=== PATIENT | female | born 1950 | race Caucasian/White ===

== ENCOUNTER 2022-05-29 15:58 | Inpatient (IN) | payer MEDICARE, OTHER ==
[~2022-05-29] VITALS: Ht 152.4 cm; Wt 81.6 kg
--- NOTE | 2022-05-29 16:01 | NUR ---
BIBA BLS TO ER BED 5
[2022-05-29 16:09] VITALS: BP 110/70
--- NOTE | 2022-05-29 16:28 | NUR ---
71 y/o female biba for new onset of nausea and vomiting after taking her norco this morning. pt was given new rx of norco for pain management of her right knee replacement sx done 2 days ago. aox4. skin is pink, warm, and non-intact; surgical incision on right knee reinforced with dressing. denies fever, chills, or sob. safety precautions in place. safety precautions in place. bed in low position. Made aware to ED MD of patient's status. pmh: right knee replacement, breast ca nka med: norco, donepezil, montelukast, melatonin
--- NOTE | 2022-05-29 16:46 | NUR ---
XR TECH AT BEDSIDE
[2022-05-29 16:47] LABS: BASOPHILS % (AUTO) 0.5 % (0.0-2.0); EOSINOPHILS % (AUTO) 0.1 % (0.0-4.0); HEMATOCRIT 31.1 % (36-48); HEMOGLOBIN 10.3 g/dL (12.0-16.0); LYMPHOCYTES # (AUTO) 1.4 K/uL (2.5-16.5); LYMPHOCYTES % (AUTO) 14.8 % (20.5-51.1); MEAN CORPUSCULAR HEMOGLOBIN 30 pg (27-31); MEAN CORPUSCULAR HGB CONC 33 g/dL (33-37); MEAN CORPUSCULAR VOLUME 89.2 fL (80-94); MONOCYTES # (AUTO) 0.9 K/uL (0.8-1.0); MONOCYTES % (AUTO) 9.4 % (1.7-9.3); NEUTROPHILS # (AUTO) 7.2 K/uL (1.8-7.7); NEUTROPHILS % (AUTO) 75.2 % (42.2-75.2); PLATELET COUNT (AUTO) 159 K/uL (140-450); RED BLOOD CELL COUNT(AUTO) 3.49 MIL/uL (4.20-5.40); RED CELL DISTRIBUTION WIDTH 15.3 % (11.6-13.7); WHITE BLOOD COUNT (AUTO) 9.6 K/uL (4.8-10.8)
[2022-05-29 17:16] LABS: ALBUMIN 2.7 g/dL (3.4-5.0); ANION GAP 12.2 (8-16); ASPARTATE AMINOTRANSFERASE 27 U/L (15-37); CHLORIDE 103 mmol/L (98-107); CREATININE 0.5 mg/dL (0.6-1.3); FREE T4 (FREE THYROXINE) 0.91 ng/dL (0.76-1.46); GFR ARICAN-AMERICAN 157 mL/min (>90); GLUCOSE 126 mg/dL (74-106); POTASSIUM 4.2 mmol/L (3.5-5.1); SODIUM SERUM 136 mmol/L (136-145); THYROID STIMULATING HORMONE 0.77 uIU/mL (0.34-3.74); TOTAL BILIRUBIN 0.8 mg/dL (0.0-1.0); UREA NITROGEN, BLOOD 9 mg/dL (7-18)
[2022-05-29 17:17] LABS: ACETAMINOPHEN < 0.5 ug/ml (10-30); SALICYLATE < 2.8 mg/dL (2.8-20.0)
--- NOTE | 2022-05-29 17:38 | NUR ---
OBTAIN UA SPECIMENS
[2022-05-29 18:05] LABS: APPEARANCE,URINE CLEAR (CLEAR); BILIRUBIN,URINE 1+ (NEGATIVE); BLOOD, URINE NEGATIVE (NEGATIVE); COLOR,URINE YELLOW (YELLOW); LEUKOCYTE ESTERASE ,URINE NEGATIVE (NEGATIVE); NITRITE, URINE NEGATIVE (NEGATIVE); UGLUCOSE NEGATIVE (NEGATIVE)
[2022-05-29 18:23] LABS: BARBITURATE, URINE NEGATIVE ng/ml (NEG <=200); BENZODIAZEPINE, URINE NEGATIVE ng/mL (NEG <=200); CANNABINOID, URINE POSITIVE ng/mL (NEG <=50); COCAINE, URINE NEGATIVE ng/mL (NEG <=300); OPIATE, URINE POSITIVE ng/mL (NEG <=2000); PHENCYCLIDINE SCREEN,URINE NEGATIVE ng/mL (NEG <=25)
[2022-05-29] MEDS ORDERED: NACL 0.9% 1,000 ML IV ONE ×2 (19:00→20:20)
--- NOTE | 2022-05-29 19:26 | NUR ---
ENDORSED TO SUPERVISOR PAYROLL NURSE FOR CONTINUITY OF CARE. PT IS STABLE.
--- NOTE | 2022-05-29 20:18 | NUR ---
Dr. Smith notified, patient had low BP -map < 60
--- NOTE | 2022-05-29 20:22 | NUR ---
COVID-19 swabs collected and sent to lab.
--- NOTE | 2022-05-29 20:29 | NUR ---
Blood for labwork drawn from right arm per commutator inspector. Patient tolerated well.
[2022-05-29] MEDS ORDERED: ATOR20TA40 PO (20:40)
[2022-05-29] MEDS ORDERED: MONT10TA35 PO (20:40)
[2022-05-29] MEDS ORDERED: DONE10TA10 PO (20:40)
--- NOTE | 2022-05-29 20:40 | NUR ---
Med-reconcile reviewed.
[2022-05-29] MEDS ORDERED: cefTRIAXone 1,000 MG VIAL ONE (20:44)
[2022-05-29] MEDS ORDERED: ONDANSETRON 4 MG/2 ML VIAL IM/IVP PRN (21:00)
[2022-05-29] MEDS ORDERED: HYDROcodone/APAP 7.5/325 MG 1 TAB PO PRN (21:00)
[2022-05-29] MEDS ORDERED: POTASSIUM CHLORIDE 10 MEQ TABER PO PRN (21:00)
[2022-05-29] MEDS ORDERED: ZOLPIDEM 5 MG TAB PO PRN (21:00)
[2022-05-29] MEDS ORDERED: guaiFENesin DM 200/20 MG-10 ML 10 ML UDC PO PRN (21:00)
[2022-05-29] MEDS ORDERED: ACETAMINOPHEN 325 MG TAB PO PRN (21:00)
[2022-05-29] MEDS ORDERED: DOCUSATE SODIUM 100 MG GELCAP PO PRN (21:00)
--- NOTE | 2022-05-29 21:51 | NUR ---
Patient appears to be resting comfortably in bed. Vital Signs within normal limits. Respirations even and unlabored.
[2022-05-29 22:27] LABS: AMYLASE 73 U/L (25-115); LIPASE 86 U/L (73-393); MAGNESIUM 2.2 mg/dL (1.8-2.4); PHOSPHORUS 2.8 mg/dL (2.5-4.9)
--- NOTE | 2022-05-29 22:51 | NUR ---
Patient 's family at bedside.
[2022-05-29] MEDS: NACL 0.9% 1,000 ML IV SCH (23:22)
--- NOTE | 2022-05-29 23:34 | NUR ---
Provided bedpan as request.
--- NOTE | 2022-05-30 00:48 | NUR ---
Change new grown and new bed sheet.
--- NOTE | 2022-05-30 01:28 | NUR ---
Re-position patient and change a new diaper
--- NOTE | 2022-05-30 02:41 | NUR ---
Re-position patient as request.
--- NOTE | 2022-05-30 04:41 | NUR ---
Patient appears to be resting comfortably in bed. Vital Signs within normal limits. Respirations even and unlabored.
--- NOTE | 2022-05-30 05:31 | NUR ---
Changed a new diaper.
[2022-05-30 05:41] LABS: BASOPHILS % (AUTO) 0.4 % (0.0-2.0); EOSINOPHILS # (AUTO) 0.1 K/uL (0-0.4); EOSINOPHILS % (AUTO) 0.6 % (0.0-4.0); HEMATOCRIT 30.8 % (36-48); HEMOGLOBIN 10.1 g/dL (12.0-16.0); LYMPHOCYTES # (AUTO) 1.5 K/uL (2.5-16.5); MEAN CORPUSCULAR HEMOGLOBIN 30 pg (27-31); MEAN CORPUSCULAR HGB CONC 33 g/dL (33-37); MEAN CORPUSCULAR VOLUME 90.5 fL (80-94); MONOCYTES # (AUTO) 0.8 K/uL (0.8-1.0); NEUTROPHILS # (AUTO) 6.8 K/uL (1.8-7.7); PLATELET COUNT (AUTO) 144 K/uL (140-450); RED BLOOD CELL COUNT(AUTO) 3.41 MIL/uL (4.20-5.40); RED CELL DISTRIBUTION WIDTH 15.5 % (11.6-13.7); WHITE BLOOD COUNT (AUTO) 9.2 K/uL (4.8-10.8)
[2022-05-30 05:52] LABS: CARBON DIOXIDE 25.8 mmol/L (21-32); CREATININE 0.4 mg/dL (0.6-1.3); POTASSIUM 3.8 mmol/L (3.5-5.1)
--- NOTE | 2022-05-30 06:07 | NUR ---
EKG PERFORMED AND ABNORM RESULTS REPORTED TO RN COPY PLACED IN CHART ALONG W/ RHYTHM STRIP
--- NOTE | 2022-05-30 07:30 | NUR ---
REPORT RECEIVED FROM MARCH RN . TRANSFER OF CARE AT THIS TIME
--- NOTE | 2022-05-30 07:31 | NUR ---
Chart checked and completed. The patient's care was reviewed and supervised by Nicolasa Romero RN.
--- NOTE | 2022-05-30 07:52 | NUR ---
Patient will be admitted to care of MD HARTMAN. Admited to TELE. Will go to room 122B. Belongings list completed. Report to PATRICIA CARDONA.
--- NOTE | 2022-05-30 07:55 | NUR ---
RECEIVED PT FROM ED VIA [employer]. BEDSIDE REPORT GIVEN BY HEIDY NAILS. PT IS ALERT, ABLE TO MAKE NEEDS KNOWN IN BENGALI AND HEBREW. BREATHING SYMMETRICAL ON ROOM AIR. DENIES NAUSEA AT THIS TIME. PT HAS DRY DRESSING ON RIGHT KNEE, PT HAD RIGHT KNEE REPLACEMENT ON T 05/27/22 AT [facility]. WITH LEFT HAND 22G WITH NS AT 100CC/HR. CALL LIGHT WITHIN REACH. ALL SAFETY MEASURES IN PLACE.
[2022-05-30 08:00] VITALS: BP 155/68
--- NOTE | 2022-05-30 08:05 | NUR ---
DR HARTMAN AT BEDSIDE, SEEN AND EXAMINED PT
[2022-05-30] MEDS: NACL 0.9% 1,000 ML IV SCH (08:10)
[2022-05-30] MEDS ORDERED: PANTOPRAZOLE 40 MG TABEC PO SCH (09:00)
--- NOTE | 2022-05-30 09:04 | NUR ---
PATIENT HAS BEEN SCREENED AND CATEGORIZED LOW NUTRITION RISK. PATIENT WILL BE SEEN WITHIN 7 DAYS OF ADMISSION. 06/05/[address]
[2022-05-30] MEDS ORDERED: NAPR-54 PO (10:09)
[2022-05-30] MEDS ORDERED: MORPHINE SULFATE 2 MG/ML SYR IVP PRN (10:10)
--- NOTE | 2022-05-30 10:15 | NUR ---
MD MADE AWARE PT C/O PAIN ON RIGHT KNEE AND NO CURRENT PRN MED ORDER IN PLACE.
[2022-05-30 11:21] VITALS: BP 155/68
--- NOTE | 2022-05-30 11:31 | NUR ---
PT FOR DISCHARGE AND AWARE. PT'S WILL PICK HER UP
--- NOTE | 2022-05-30 12:40 | NUR ---
PT DISCHARGED TO HOME WITH BELONGINGS AND PAPERWORKS, PICKED UP BY VIA PRIVATE VEHICLE. IV LINE REMOVED WITH CATHETER INTACT, NO BLEEDING NOTED. DISCHARGE INSTRUCTIONS PROVIDED AND VERBALIZED UNDERSTANDING
--- NOTE | 2022-05-30 13:13 | NUR ---
DC PLANNING: THE PATIENT WAS BIBA WITH C/O NAUSEA, S/P RIGHT TKR, ONSET OF N/V AFTER TAKING NORCO. H/O BREAST CA, HEAD CT NEGATIVE, FINDINGS OF NARCOTIC AND THC OVERDOSE. TOX SCREEN POSITIVE FOR OPIATES AND CANNABINOIDS, STARTED ON IVF'S, ROCEPHIN IV AND PROTONIX. THE PATIENT LIVES WITH HER SPOUSE AND MOTHER AND WILL NEED HOME HEALTH P.T.. ORDER FOR HOME HEALTH FAXED TO [place] TO [facility], PATIENT TO DC HOME WITH FAMILY WHEN CLINICALLY STABLE. CM WILL FOLLOW.
== END 2022-05-30 12:35 | disposition home or self-care (01) | DRG 917 ==
LOC: MED 15:58 → MTU 21:03
PROVIDERS: ADMIT Student in an Organized Health Care Education/Training Program; ATTEND Student in an Organized Health Care Education/Training Program
DX: T40.711A Poisoning by cannabis, accidental (unintentional), initial encounter (principal); G92.8 Other toxic encephalopathy; I95.9 Hypotension, unspecified; Z20.822 Contact with and (suspected) exposure to COVID-19; M19.90 Unspecified osteoarthritis, unspecified site; Z79.899 Other long term (current) drug therapy; Z88.6 Allergy status to analgesic agent; Z88.5 Allergy status to narcotic agent; Y92.89 Other specified places as the place of occurrence of the external cause
CPT/HCPCS: 36415; 70450; 71045; 80048; 80053; 80305; 81003; 82150; 83605; 83690; 83735; 83880; 84100; 84439; 84443; 84484; 85025; 87040; 87081; 93005; 96361; 96365; 99285; G0480; G0482; J0696; J2270; J7030